=== PATIENT | female | born 2000 | race Two or more races ===

== ENCOUNTER 2024-09-11 10:20 | Inpatient (IN) | payer MEDICAID, OTHER ==
[~2024-09-11] VITALS: Ht 160 cm; Wt 81.6 kg
[2024-09-11] MEDS ORDERED: PREN-96 PO (11:10)
[2024-09-11 11:47] LABS: Urine Bacteria FEW /hpf (None Seen); Urine Blood Negative /uL (Negative); Urine Clarity Clear (Clear); Urine Color Yellow (Yellow); Urine Mucus FEW (None Seen); Urine Protein, UAD TRACE (Negative); Urine Specific Gravity 1.022 (1.001-1.035); Urine Squamous Epithelial Cell FEW /hpf (<5); Urine Urobilinogen Normal (Negative); Urine WBC 10 /hpf (0 - 5); Urine pH 6.5 (5.0-9.0)
[2024-09-11 11:50] LABS: Vaginal Trichomonas Not Present
[2024-09-11 11:51] LABS: Vaginal Bacteria Few; Vaginal Clue Cells None Seen; Vaginal Epithelial Cells Few
[2024-09-11 11:55] LABS: Fern Testing Negative
[2024-09-11] MEDS ORDERED: LORazepam 2MG/ML-1ML VIAL IV ONE (12:15)
--- NOTE | 2024-09-11 12:23 | DVH ---
EXAM: US OB ULTRASOUND COMP GTR 14 WKS HISTORY: reyes pnc, contractions, possible SROM TECHNIQUE: Multiple real-time grayscale images of the gravid uterus with duplex Doppler color flow an d M-mode spectral analysis. COMPARISON: None FINDINGS: IUP single live fetus at 28 weeks and 0 days average ultrasound age (AUA) based on composite averages of the BPD, head circumference, abdominal circumference and femur length Age based on (early ultrasound) : 27 weeks and 2 days Estimated weight 1236 grams heart rate 133 beats per minute JENSEN 18.3 cm Cephalic Presentation Posterior placenta without previa or abruption Cervix is shortened with funneling measuring 0.7 cm IMPRESSION: IUP single live fetus at 28 weeks and 0 days AUA corresponding to an INA of 12/04/2024. Cervix is shortened with funneling measuring 0.7 cm
[2024-09-11] MEDS: BETAMETHASONE ACET (30mg/5ml) 5ml Vial 6mg/ml IM ONE (12:40)
[2024-09-11] MEDS: ceFAZolin 2 GM/D5W50ml 50 ML IV ONE (12:41)
[2024-09-11] MEDS: MAGNESIUM SULFATE 100 ML IV ONE (12:41)
[2024-09-11] MEDS: MAGNESIUM SULFATE 40MG/ML 1,000 ML IV SCH (12:45)
[2024-09-11 14:00] LABS: Basophils # (auto) 0 10 ^3/uL (0-0.2); Basophils % (auto) 0.3 % (0.0-2.0); Eosinophils # (auto) 0 10 ^3/uL (0-0.8); Eosinophils % (auto) 0.3 % (0.0-7.0); Hematocrit 38.2 % (36.0-46.0); Hemoglobin 12.9 g/dL (12.2-16.2); Lymphocytes # (auto) 1.3 10 ^3/uL (0.4-5.4); Lymphocytes % (auto) 14.4 % (10.0-50.0); Mean Corpuscular Hgb Conc. 33.7 g/dL (32.0-36.0); Monocytes # (auto) 0.4 10 ^3/uL (0-1.3); Monocytes % (auto) 4.6 % (0.0-12.0); Neutrophils # (auto) 7.4 10 ^3/uL (1.6-8.6); Neutrophils % (auto) 80.4 % (37.0-80.0); Nucleated Red Blood Cells % 0.1 %; Platelet Count (auto) 140 10^3/uL (140-450); Red Blood Cells 4.29 10^6/uL (4.0-5.20); Red Cell Distribution Width 13.9 % (11.8-14.3); White Blood Cell 9.3 10^3/uL (4.4-10.8)
--- NOTE | 2024-09-11 14:01 | DVHDS2 ---
Physician Discharge Progress N Final Diagnosis: Pre-term labor Transfer to Higher level of care Operations or Procedures: Operations or Procedures nst,sono Condition on Discharge: Higher Level of Care Disposition: Acute Care Facility Discharge Instructions: Diet: Regular, See Comment Activity: Bed rest Medications: na Follow Up Care: Specialist: to [facility] Discharge Statement: "Patient was advised to return to the ER or call 911 if any headaches, dizziness, shortness of breath, chest pain, abdominal pain, bleeding, fevers, or worsening of medical condition. Patient was counseled about treatment plan, medications, possible side effects, patientverbalized understanding. All questions were answered to the best of my ability. This discharge took greater then 30 minutes in planning, reviewing documentation, counseling the patient, and discussing with other team members." LIZ AMIN DO Sep 11, 2024 14:01
--- NOTE | 2024-09-11 14:02 | DVHTS ---
Transfer Summary Transfer Summary Date of Admission Sep 11, 2024 at 12:45 Date of Transfer: Sep 11, 2024 Transfer Diagnosis ptl,previous cs Brief Hx & Hospital Course: pt presented with cramping ,noted to be in ptl subseq pt was transfrred to [facility] Transfer to: [facility] Discharge Instructions: via air Transfer Status stable Date of Service: Sep 11, 2024 Billing Provider: LIZ AMIN DO Common Visit Codes: [id number] INP/OBS CARE (HIGH) LIZ AMIN DO Sep 11, 2024 14:02
--- NOTE | 2024-09-11 14:07 | DVHHP2 ---
OB CC & HPI Date Date of Admission: Sep 11, 2024 Patient Identification: : 3 Para: 2 EDC: Nov 29, 2024 EGA: 28wks Chief Complaints: Reason for admission: labor Admission Nurse Assessment Rev: No History of Present Complaints pt admitte for ptl,no rom or vag bleeding .pt was not feeling any ucs . she has previous csx1 and has pnc in [place] Past Medical History Cardiac: No pertinent Hx Pulmonary: No pertinent Hx Central Nervous System: No pertinent Hx GI: No pertinent Hx Hemotology/Oncology: No pertinent Hx Hepatobiliary: No pertinent Hx Psychiatric: No pertinent Hx Musculoskeletal: No pertinent Hx Rheumotologic: No pertinent Hx Infectious Disease: No peritnent Hx ENT: No pertinent Hx Renal/: No pertinent Hx Endocrine: No pertinent Hx Dermatology: No pertinent Hx Past Surgical History: OB History OB History Care: Good Care Ultrasounds: Normal mid trimester US Obstetrical Complications: None Medical Complications: None Allergies: Coded Allergies: NO KNOWN ALLERGIES (Unverified , 09/11/24) Home Meds Reported Medications Vit W/ Ferrous Fumara ( One Daily) Daily Tab, 1 TAB PO DAILY, #90 TAB 3 Refills 09/11/24 Current Medications Current Medications Medications (Trade) Dose Ordered Sig/Fred Route PRN Reason Start Time Stop Time Status Last Admin Magnesium Sulfate 1,000 ml @ 50 mls/hr Q20H IV 09/11/24 12:15 09/11/24 12:45 Family & Social History Family/Social History Blood Type: Unknown Rubella: unknown RPR/VDRL: Negative GBS Status: Unknown HBsAG: Negative Review of Systems Constitutional: No symptom reported Ears, Nose, & Throat: No symptom reported Eyes: No symptom reported Pulmonary/Respiratory: No symptom reported Cardiovascular: No symptom reported Gastrointestinal: No symptom reported Genitourinary: No symptom reported Musculoskeletal: No symptom reported Skin: No symptom reported Psychiatric: No symptom reported Endocrine: No symptom reported Hemotologic/Lymphatic: No symptom reported OB Admission Exam Physical Exam HEENT: TMs Normal, Fontanelles Normal, Nasal Mucosa Normal, Eyes non-injected, Oropharynx Normal, PERRLA, Moist Membranes, EOMI Heart: Rhythm Normal Lungs: Clear Abdomen: Non tender Extremities: Normal Reflexes: Normal Cervical Dilatation: 3cm Effacement: 50% Station: -2 Membranes: Intact Heart Rate: 130's Accelerations: Accelerations Present Decelerations: No Decelerations Short Term Variability: Present Jail Variability: Average (6-25) Contractions on Admission: None OB Plan Plan Admitting Diagnosis: Transfer to higher level for labor Other Plan: transfer vto [facility],dr loco accepted transfer and dr islas will manage pt LIZ AMNI DO Sep 11, 2024 14:06
[2024-09-11 14:12] LABS: INR 0.87 (0.9-1.15); Partial Thromboplastin Time 26.4 SEC (24.5-34.5); Prothrombin Time 9.3 sec (9.3-11.8)
[2024-09-11 14:30] LABS: Alanine Aminotransferase 12 U/L (7-40); Albumin 3.9 g/dL (3.2-4.8); Anion Gap 8 (5-15); Bilirubin, Total 0.4 mg/dL (0.2-1.0); Calcium 8.8 mg/dL (8.7-10.4); Carbon Dioxide 22 mmol/L (20-31); Glucose 87 mg/dL (74-106); Potassium 3.6 mmol/L (3.5-5.1); Sodium 137 mmol/L (136-145); Total Protein 6.8 g/dL (5.7-8.2)
[2024-09-11 14:37] LABS: Alkaline Phosphatase 171 U/L (46-116); Aspartate Aminotransferase 12 U/L (13-40); BUN/Creatinine Ratio 9.4 (10.0-20.0); Blood Urea Nitrogen < 5 mg/dL (9-23); Chloride 107 mmol/L (98-107)
[2024-09-11 14:49] LABS: Uric Acid 2.9 mg/dL (3.1-7.8)
[2024-09-12 07:06] LABS: RPR Non Reactive (Non Reactive); Rubella Antibodies, IgG 2.54 index (Immune >0.99)
== END 2024-09-11 13:45 | disposition short-term general hospital (02) | DRG 566 ==
LOC: LDRP 10:20 → OBSVTOIN 12:45
PROVIDERS: ADMIT Obstetrics & Gynecology; ATTEND Obstetrics & Gynecology
DX: O60.03 Preterm labor without delivery, third trimester (principal)
CPT/HCPCS: 36415; 59025; 76805; 80053; 81001; 81002; 83735; 84112; 84550; 85025; 85610; 85730; 86592; 86703; 86762; 86780; 86803; 86850; 86900; 86901; 87086; 87088; 87186; 87210; 87340; 96360; 96361; 96365; 96366; G0378